=== PATIENT | female | born 1985 | race Caucasian/White ===

== ENCOUNTER 2018-07-19 05:10 | Inpatient (IN) | payer BC ==
[2018-07-19] MEDS ORDERED: Lactated Ringers 1000 ML Bag* 1,000 ML IV ONE ×2 (06:00→14:02)
[2018-07-19] MEDS ORDERED: Lactated Ringers 1000 ML Bag* 1,000 ML IV SCH ×3 (06:00→23:00)
[2018-07-19] MEDS ORDERED: Buffered Lidocaine 1% SYRIN* 1 ML/SYRINGE INTRADERM ONE (06:00)
[2018-07-19] MEDS ORDERED: Penicillin G Potassium IV* 5,000,000 UNITS in NS 0.9% 100 ML* 100 ML IVPB ONE (06:20)
[2018-07-19 06:44] LABS: ABS Basophils 0.1 10^3/ul (0-0.2); ABS Eosinophils 0.1 10^3/ul (0-0.6); ABS Lymphocytes 1.9 10^3/ul (1.0-4.8); ABS Monocytes 0.8 10^3/ul (0-0.8); ABS Neutrophils 11.6 10^3/ul (1.5-7.7); ABS Nucleated RBC 0 10^3/ul; Eosinophil % 0.8 %; Hematocrit 35 % (35-47); Hemoglobin 11.7 g/dl (12.0-16.0); Lymphocyte % 13.4 %; Mean Corpuscular HGB Conc 33 g/dl (31-36); Mean Corpuscular Hemoglobin 29 pg (27-31); Mean Corpuscular Volume 86 fL (80-97); Mean Platelet Volume 8.7 fL (7.4-10.4); Nucleated Red Blood Cells % 0; Platelet Count 288 10^3/ul (150-450); Red Blood Count 4.08 10^6/ul (4.00-5.40); Red Cell Distribution Width 15 % (10.5-15); White Blood Count 14.5 10^3/ul (3.5-10.8)
--- NOTE | 2018-07-19 06:56 | HP ---
General Information - Reason for Visit SROM to clear fluid at 0230. - General Information Maternal Age: 33 Grav: 1 Para: 0 SAB: 0 IEA: 0 Estimated Due Date: 07/24/18 Determined By: LMP Maternal Blood Type and Rh: B Positive - Results this Serology/RPR Result: Non-Reactive Rubella Result: Immune HBsAg Result: Negative HIV Result: Negative GBS Culture Result: Positive Past Medical History Delivery History: See Records - Primigravida Pertinent Past Medical History: See Records - Anxiety Pertinent Past Surgical History: None Pertinent Family History: See Records - hypothyroidism - Antepartal Records Antepartal Records: Reviewed, Complicated by: - low lying placenta, resolved Review of Systems Constitutional: Comfortable CV Complaint: No Respiratory: Shortness of Breath: No Gastrointestinal: No Nausea/Vomiting, Normal Bowel Movement Genitourinary: Leaking Fluid, No Dysuria, No Bleeding Musculoskeletal: No Complaint, No Epigastric Pain Neurological: No Headache, No Visual Changes Movement: Normal Exam Allergies/Adverse Reactions: Allergies No Known Allergies Allergy (Verified 06/22/17 10:49) T-97.8, P-78, R-18, BP- 117/63, O2-100% Lab Values - Entire Visit: Laboratory Tests 07/19/18 06:06 WBC 14.5 H RBC 4.08 Hgb 11.7 L Hct 35 MCV 86 MCH 29 MCHC 33 RDW 15 Plt Count 288 MPV 8.7 Neut % (Auto) 79.9 Lymph % (Auto) 13.4 [place] % (Auto) 5.2 Eos % (Auto) 0.8 Baso % (Auto) 0.7 Absolute Neuts (auto) 11.6 H Absolute Lymphs (auto) 1.9 Absolute Monos (auto) 0.8 Absolute Eos (auto) 0.1 Absolute Basos (auto) 0.1 Absolute Nucleated RBC 0 Nucleated RBC % 0 - Measurements Height: 5 ft 4 in Weight: 81.647 kg Weight in lbs: 180.611771 Body Mass Index (BMI): 30.9 Pre- Weight: 67.132 kg Weight Gained This : 32 lbs and 0 ozs - Exam Breast: Breast Exam Deferred CVA: No CVA Tenderness Extremities: No Edema Heart: Normal Rhythm/Heart Sounds HEENT: No Significant Findings Lungs: Clear Bilaterally Rectal: Rectal Exam Deferred Reflexes: DTR 2+ Thyroid: No Thyromegaly - Abdominal Exam Abdomen Exam: Non-Tender, Fundal Height Consistent with Dates - Ultrasound/Biophysical Profile Ultrasound Status: Not Done Targeted Exam Findings See L&D Outpatient Visit Provider Note for Findings: N/A Estimated Weight: 7.5# Membrane Status: SROM Amniotic Fluid Evaluation: Gross Rupture Bleeding/Discharge: None - Cervical exam deferred as pt elects expectant management EFM Findings - External Monitor Findings Baseline Heart Rate: 130 External Monitor Findings: Accelerations Present, No Pattern of Variable or Late Decelerations, Variability Moderate, Baseline Stable Contractions: Irregular, Mild, 45-90 Seconds Assessment/Plan - Assessment 33 year old with ruptured membranes in apparent early labor, fluid clear, GBS positive, no evidence of acidemia, no evidence of chorioamnionitis. - Obstetrical Risk Factors Obstetrical Risk Factors: GBS Positive - Plan Plan: Admit - Anticipate Vaginal Delivery Plan Comment: Discussed options with pt, including initiation of oxytocin augmentation of labor vs expectant management. Pt is starting to contract, and has a strong preference for expectant management, so we will observe for now. Pt open to augmentation if labor does not ensue. - Date/Time of Admission Date of Admission: 07/19/18 Time of Admission: 06:00
--- NOTE | 2018-07-19 08:55 | PN ---
Progress Note - Progress Note Date of Service: 07/19/18 Note: SOAP: S: Pt at bedside eating breakfast with Feeling "crampy" Leaking clear fluid w/bloody show O: BP 99/64, temp 98.5 Ctx: irregular VE: deferred FHR 130, +accels, no decels, moderate variability A: VSS, pt afebrile Irregular contractions No evidence of metabolic acidemia Well supported at bedside by P: Activities to support progression to active labor: walk, yoga ball, bath VE as needed if labor progression not apparent by 10am Anticipate progression to
[2018-07-19] MEDS ORDERED: Misoprostol TAB* 100 MCG PO ONE (10:39)
[2018-07-19] MEDS: Penicillin G Potassium IV* 2,500,000 UNITS in NS 0.9% 100 ML* 100 ML IVPB SCH ×3 (10:55→18:46)
--- NOTE | 2018-07-19 10:55 | PN ---
Progress Note - Progress Note Date of Service: 07/19/18 Note: SOAP: S: Pt in bed Feeling "crampy" Leaking clear fluid w/bloody show O: Temp 97.8 Ctx: irregular VE: 3/50/0, -1, posterior, hamilton = 6 FHR 140, +accels, no decels, moderate variability A: Pt afebrile Irregular contractions No evidence of metabolic acidemia Well supported at bedside by Hamilton score 6 P: Given unfavorable hamilton score, discussion had between pt and to augment labor. Risks vs. benefits of cyctotec reviewed. Pt and family in agreement with plan. Encourage activities to support progression to active labor: walk, yoga ball, bath VE in 4 hours or sooner as needed Anticipate progression to
[2018-07-19] MEDS ORDERED: OBEPIDURAL* 250 ML EPIDURAL ONE (13:11)
[2018-07-19] MEDS ORDERED: Lactated Ringers 1000 ML Bag* 500 ML IV PRN (14:02)
[2018-07-19] MEDS ORDERED: Phenylephrine IV* 40 MCG/ML 10 ML SYRINGE IV PUSH PRN ×2 (14:02)
[2018-07-19] MEDS ORDERED: Sodium Citrate/Citric Acid* 15 ML UDC PO PRN (14:02)
[2018-07-19] MEDS ORDERED: OBEPIDURAL* 250 ML EPIDURAL SCH (15:00)
--- NOTE | 2018-07-19 15:25 | PN ---
Progress Note - Progress Note Date of Service: 07/19/18 Note: - SOAP: S: Pt resting in bed Moderate pain relief with epidural, shaking, and feeling pressure in her bottom O: Temp 97.8 Ctx: VE: 9/100/0 FHR 125, +accels, occasional variable decel, moderate variability A: Pt afebrile regular contractions No evidence of metabolic acidemia Well supported at bedside by P: VE as needed Anticipate progression to
[2018-07-19] MEDS ORDERED: ceFOXitin 2 GM IVPREMIX* 2 GM/50 ML BAG ONE (20:39)
[2018-07-19] MEDS ORDERED: OXYTOCIN* 10 UNITS/ML 1 ML VIAL ONE (20:39)
[2018-07-19] MEDS ORDERED: Famotidine IV* 10 MG/ML 2 ML (20 mg) ONE (21:15)
[2018-07-19] MEDS ORDERED: Morphine PF AMP (0.5MG/ML)* 5 MG/10 ML AMP ONE (21:37)
[2018-07-19] MEDS ORDERED: Lidocaine 2% EPI 1:200000 MPF*10-20 ML VIAL ONE (21:37)
[2018-07-19] MEDS ORDERED: Carboprost Tromethamine* 250 MCG INJ ONE (21:45)
[2018-07-19] MEDS ORDERED: Dexamethasone IV* 4 MG/ML 1 ML (4 MG) ONE (21:58)
[2018-07-19] MEDS ORDERED: Ondansetron INJ* 2 MG/ML VIAL ONE (21:58)
[2018-07-19] MEDS ORDERED: Bupivacaine 0.25% SDV PF* 10 ML VIAL INJ ONE (22:22)
[2018-07-19] MEDS ORDERED: Glycerin ADULT SUPP PR PRN (22:28)
[2018-07-19] MEDS ORDERED: Acetaminophen TAB* 325 MG PO PRN ×2 (22:28→22:51)
[2018-07-19] MEDS ORDERED: Witch Hazel PAD* JAR TOPICAL PRN (22:28)
[2018-07-19] MEDS ORDERED: Dibucaine 1% 28.35 GM TUBE PR PRN (22:28)
[2018-07-19] MEDS ORDERED: fentaNYL* 50 MCG/ML 2 ML VIAL (100 MCG VIAL) IV PRN (22:50)
[2018-07-19] MEDS ORDERED: Naloxone* 0.4 MG/ML 1 ML VIAL IV PRN ×2 (22:50→22:51)
[2018-07-19] MEDS ORDERED: DiMENhydriNATE IV* 50 MG/ML VIAL IV PUSH PRN (22:51)
[2018-07-19] MEDS ORDERED: Nalbuphine* 10 MG/ML 1 ML VIAL IV PRN (22:51)
[2018-07-19] MEDS ORDERED: Ondansetron INJ* 2 MG/ML VIAL IV PRN (22:51)
[2018-07-19] MEDS ORDERED: diPHENhydraMINE IV* 50 MG/ML 1 ml VIAL (BENADRYL) IV PRN (22:51)
[2018-07-19] MEDS ORDERED: PROCHLORPERAZINE INJ 5 MG/ML 2 ML VIAL IV PRN (22:51)
[2018-07-19] MEDS ORDERED: Scopolamine 1.5 mg* PATCH TRANSDERM PRN (22:51)
[2018-07-19] MEDS: oxyCODONE/Acetamin 5/325 MG* TAB PO PRN (23:56)
[2018-07-19] MEDS: Ibuprofen TAB* 600 MG PO PRN (23:57)
[2018-07-20] MEDS: oxyCODONE/Acetamin 5/325 MG* TAB PO PRN ×5 (04:02→20:47)
[2018-07-20] MEDS ORDERED: Methylergonovine INJ* 0.2 MG/ML 1ML AMP ONE (05:01)
[2018-07-20] MEDS: Ibuprofen TAB* 600 MG PO PRN ×3 (06:09→20:53)
[2018-07-20 07:15] LABS: Hematocrit 30 % (35-47); Hemoglobin 9.5 g/dl (12.0-16.0); Mean Corpuscular HGB Conc 32 g/dl (31-36); Mean Corpuscular Hemoglobin 28 pg (27-31); Mean Corpuscular Volume 86 fL (80-97); Mean Platelet Volume 8.5 fL (7.4-10.4); Platelet Count 259 10^3/ul (150-450); Red Blood Count 3.44 10^6/ul (4.00-5.40); Red Cell Distribution Width 15 % (10.5-15); White Blood Count 32.9 10^3/ul (3.5-10.8)
[2018-07-20 07:38] LABS: ABS Basophils 0 10^3/ul (0-0.2); ABS Eosinophils 0 10^3/ul (0-0.6); ABS Lymphocytes 1.3 10^3/ul (1.0-4.8); ABS Monocytes 2.2 10^3/ul (0-0.8); ABS Neutrophils 29.4 10^3/ul (1.5-7.7); ABS Nucleated RBC 0 10^3/ul; Eosinophil % 0 %; Lymphocyte % 3.9 %; Nucleated Red Blood Cells % 0
[2018-07-20] MEDS: Ferrous Gluconate TAB* 324 MG TAB PO SCH ×2 (08:21→20:47)
[2018-07-20] MEDS: Docusate CAP* 100 MG PO SCH ×3 (08:21→20:47)
[2018-07-20] MEDS: Simethicone TAB* 80 MG TAB.CHEW PO SCH ×4 (08:22→20:47)
[2018-07-20] MEDS ORDERED: Zolpidem TAB* 5 MG PO PRN (13:41)
[2018-07-20] MEDS ORDERED: oxyCODONE/Acetamin 5/325 MG* TAB PO PRN (13:41)
[2018-07-20] MEDS ORDERED: Acetaminophen TAB* 325 MG PO PRN (14:00)
--- NOTE | 2018-07-20 21:20 | OP ---
CC: [facility] * DATE OF OPERATION: 07/19/18 - ROOM #101 DATE OF : 83 SURGEON: Wesley Eid MD PROJECT MANAGER/TEAM COACH: Matthew De León, Certified Nurse Spring Machine Operator. ANESTHESIA: Epidural. PRE-OP DIAGNOSES: at 41 weeks with an arrest of descent in labor. POST-OP DIAGNOSES: at 41 weeks with an arrest of descent in labor along with a deep transverse arrest. OPERATIVE PROCEDURE: Primary low transverse section. ESTIMATED BLOOD LOSS: 1000 cc. SPECIMEN SENT TO PATHOLOGY: Cord blood and gas. IV FLUIDS: She received 2900 cc of IV crystalloid fluid. URINE OUTPUT: 800 cc blood tinged urine. FINDINGS: Delivery of a male in a deep transverse arrest weighing 7 pounds 10 ounces with Apgars of 8 and 9 over clear fluid. The placenta was grossly intact with a three-vessel cord noted. The uterus, adnexa, bowel, and bladder were all within normal limit. DESCRIPTION OF PROCEDURE: The patient was taken to operating room where she was identified. She was placed on the operating table and epidural anesthetic was obtained without difficulty. She was then placed in the supine position with a leftward tilt, prepped and draped in normal sterile fashion. A Pfannenstiel skin incision was made with a knife and carried through to the underlying layer of fascia. The fascia was then nicked in the midline and extended laterally with curved Bell scissors. The fascia was grasped superiorly and inferiorly with Natalio clamps and dissected off sharply from the rectus muscle. The rectus muscle was in midline bluntly. The peritoneum was then identified, grasped with pickups, entered sharply with Metzenbaum scissors, and extended superiorly, inferiorly sharply. A bladder blade was inserted into the patient's abdomen and a bladder flap was created using Metzenbaum scissors over which the bladder blade was then reinserted. A low transverse uterine incision was then made with a knife and extended laterally with bandage scissors. The infant's head was then grasped and delivered atraumatically with vacuum assistance. The rest of the infant's body was then delivered. The cord was clamped and cut, the was handed off to awaiting mechanical shop laborer. Cord bloods and cord blood gas were obtained. The placenta was removed manually. The uterus was then exteriorized, cleared of all clot and debris using moist laparotomy sponges. The uterine incision was then closed using 0 Polysorb suture in a running locked fashion with a second imbricating layer of 0 Polysorb suture with good hemostasis noted. The uterus was then returned to the patient's abdomen. The gutters were then cleared of all clot and debris using moist laparotomy sponges. All the sponges removed from the patient's abdomen as well as instrument. The peritoneum was then closed using 3-0 Polysorb suture in a running fashion. The fascia was closed using 0 Polysorb suture in a running fashion and the skin was closed with a 4-0 Monocryl subcuticular stitch. The patient tolerated the procedure well. Sponge, lap, and needle counts were correct x2. She was then transferred to the recovery room area in stable condition. [id number]/[facility] #: [id number] MAHENDRA
[2018-07-21] MEDS: oxyCODONE/Acetamin 5/325 MG* TAB PO PRN ×6 (01:04→20:59)
[2018-07-21] MEDS: Ibuprofen TAB* 600 MG PO PRN ×3 (05:07→19:52)
[2018-07-21] MEDS: Docusate CAP* 100 MG PO SCH ×3 (09:05→19:53)
[2018-07-21] MEDS: Simethicone TAB* 80 MG TAB.CHEW PO SCH ×4 (09:05→19:53)
[2018-07-21] MEDS: Ferrous Gluconate TAB* 324 MG TAB PO SCH ×2 (09:05→19:53)
[2018-07-22] MEDS: oxyCODONE/Acetamin 5/325 MG* TAB PO PRN ×3 (01:48→10:29)
[2018-07-22] MEDS: Penicillin G Potassium IV* 2,500,000 UNITS in NS 0.9% 100 ML* 100 ML IVPB SCH (07:57)
[2018-07-22] MEDS: Ibuprofen TAB* 600 MG PO PRN (08:42)
[2018-07-22] MEDS: Docusate CAP* 100 MG PO SCH (08:42)
[2018-07-22] MEDS: Ferrous Gluconate TAB* 324 MG TAB PO SCH (08:42)
[2018-07-22] MEDS: Simethicone TAB* 80 MG TAB.CHEW PO SCH (08:42)
[2018-07-22 11:01] VITALS: BP 108/66
[2018-07-22] MEDS ORDERED: Scopolamine PATCH Remove* 1 NOTE MISC PATCH OFF PRN (22:52)
== END 2018-07-22 13:55 | disposition home or self-care (01) | DRG 540 ==
LOC: MCHOBOUT 05:10 → MCHOB 06:00
PROVIDERS: ADMIT Midwife; ATTEND Midwife
PROC: 4A1HXCZ Monitoring of Products of Conception, Cardiac Rate, External Approach (ICD-10-PCS; 2018-07-19)
PROC: 10D00Z1 Extraction of Products of Conception, Low, Open Approach (ICD-10-PCS; principal; 2018-07-19 21:07)
DX: O48.0 Post-term pregnancy (principal); O99.824 Streptococcus B carrier state complicating childbirth; Z3A.41 41 weeks gestation of pregnancy; Z37.0 Single live birth; O62.1 Secondary uterine inertia; O90.81 Anemia of the puerperium; O76 Abnormality in fetal heart rate and rhythm complicating labor and delivery
CPT/HCPCS: 36415; 85025; 86850; 86900; 86901; A9270-GY; J0694; J1100; J2210; J2405; J2540; J2590; J3490; S0191

== ENCOUNTER 2019-03-12 11:15 | Emergency (ER) | payer BC ==
[2019-03-12 11:35] VITALS: BP 117/89
--- NOTE | 2019-03-12 12:37 | UC ---
Skin Complaint HPI - HPI Summary HPI Summary: patient was gardening 1 week ago and next day had poison patricia rash on R forearm. has been spreading over R arm and now on L arm, R abd and hip using OTC poison patricia cream with little relief - History of Current Complaint Chief Complaint: UCRash Time Seen by Provider: 03/12/19 12:10 Stated Complaint: RASH Hx Obtained From: Patient Hx Last Menstrual Period: 02/19/19 ?: No Onset/Duration: Gradual Onset Pain Intensity: 0 Character: Pruritus, Redness, Raised Aggravating Factor(s): Touch Alleviating Factor(s): Nothing Associated Signs & Symptoms: Positive: Negative. Negative: Fever, Drainage, Red Streaks - Allergy/Home Medications Allergies/Adverse Reactions: Allergies Allergy/AdvReac Type Severity Reaction Status Date / Time No Known Allergies Allergy Verified 03/12/19 11:29 Home Medications: Home Medications Cholecalciferol (Vitamin D3) [Vitamin D3] 1,000 unit PO DAILY 03/12/19 [History Confirmed 03/12/19] Cyanocobalamin TAB* [Vitamin B12 TAB*] 500 mcg PO DAILY 03/12/19 [History Confirmed 03/12/19] Etonogest/Eth.estradiol (Nf) [Nuvaring Vaginal Ring] 1 each VAGINAL .SEE COMMENTS 03/12/19 [History Confirmed 03/12/19] Fexofenadine (NF) [Gayle 180 (NF)] 180 mg PO DAILY 03/12/19 [History Confirmed 03/12/19] PMH/Surg Hx/FS Hx/Imm Hx Previously Healthy: Yes Respiratory History: Other - environmental allergies - Surgical History Surgical History: Yes Surgery Procedure, Year, and Place: - Family History Known Family History: Positive: None - Social History Occupation: Student Lives: With Family Alcohol Use: None Substance Use Type: None Smoking Status (MU): Never Smoked Tobacco - Immunization History Most Recent Influenza Vaccination: 2018 Most Recent Pneumonia Vaccination: n/a Review of Systems All Other Systems Reviewed And Are Negative: Yes Skin: Positive: Rash Respiratory: Positive: Negative Neurological: Positive: Negative Psychological: Positive: Negative Is Patient Immunocompromised?: No Physical Exam Triage Information Reviewed: Yes Appearance: Well-Appearing, No Pain Distress, Well-Nourished Vital Signs: Initial Vital Signs Temp 98.1 F 03/12/19 11:31 Pulse 76 03/12/19 11:31 Resp 18 03/12/19 11:31 BP 117/89 03/12/19 11:31 Pulse Ox 99 03/12/19 11:31 Vital Signs Reviewed: Yes Respiratory Exam: Normal Respiratory: Positive: Lungs clear Cardiovascular Exam: Normal Cardiovascular: Positive: RRR Skin: Positive: Rashes - patchy erythemic, vesicular pruritic rash bilateral upper extremeties, R abd and hip Course/Dx - Differential Diagnoses - Skin Complaint Differential Diagnoses: Cellulitis, Contact Dermatitis, Local Allergic Reaction , Poison Patricia - Diagnoses Provider Diagnosis: Poison patricia Discharge ED - Sign-Out/Discharge Documenting (check all that apply): Patient Departure All imaging exams completed and their final reports reviewed: No Studies - Discharge Plan Condition: Good Disposition: HOME Prescriptions: methylPREDNISolone [Medrol Dosepak 4 MG*] 0 mg PO .SEE TERRY INSTRUCTION #1 terry Patient Education Materials: Poison Patricia (ED) Referrals: Gladys Carvajal MD [Primary Care Provider] - 3 Days (if no better) Additional Instructions: start medrol dose Terry and take as prescribed apply Baljinder Emu with lidocaine for itching can also continue using poison patricia cream you have with you - Billing Disposition and Condition Condition: GOOD Disposition: Home - Attestation Statements Provider Attestation: I was available for consult. This patient was seen by the DEANGELO. The patient was not presented to , seen by or examined by nj -Yann Moreno MD
== END 2019-03-12 12:44 | disposition home or self-care (01) ==
LOC: UCEAST 11:15
DX: J02.9 Acute pharyngitis, unspecified (principal); J18.9 Pneumonia, unspecified organism
CPT/HCPCS: 99212; G0463